=== PATIENT | female | born 1960 | race Two or more races ===

== ENCOUNTER 2021-04-25 17:46 | Emergency (ER) | payer OTHER ==
[~2021-04-25] VITALS: Ht 152.4 cm
[2021-04-25] MEDS ORDERED: AMITRIPTYLINE H10 MG (18:12)
[2021-04-25] MEDS ORDERED: KETO10TA2 PO (23:03)
[2021-04-25] MEDS ORDERED: ORPHENADRINE C100 MG PO (23:03)
== END 2021-04-25 23:26 | disposition home or self-care (01) ==
LOC: ER 17:46
DX: R10.32 Left lower quadrant pain (principal); M54.59 Other low back pain